=== PATIENT | female | born 2000 | race Caucasian/White ===

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

== ENCOUNTER 2022-05-29 11:21 | Outpatient (REF) | payer OTHER, SELFPAY ==
[2022-05-29 12:12] LABS: Influenza A PCR POSITIVE (Negative); Influenza B PCR NEGATIVE (Negative); Resp Syncy Virus RNA Qual PCR NEGATIVE (Negative); SARS COV2 PCR INHOUSE NEGATIVE (Negative)
== END 2022-05-29 11:22 | disposition home or self-care (01) ==
LOC: HO.LNP 11:21
PROVIDERS: Visit Provider Internal Medicine
DX: Z20.822 Contact with and (suspected) exposure to COVID-19 (principal); R43.9 Unspecified disturbances of smell and taste
CPT/HCPCS: 0241U

== ENCOUNTER 2022-09-10 12:03 | Emergency (ER) | payer OTHER, SELFPAY ==
--- NOTE | ~2022-09-10 | CT_ITS ---
EXAMINATION: CT ABDOMEN AND PELVIS WITHOUT CONTRAST CLINICAL INFORMATION: Flank pain and hematuria. Rule out kidney stone. COMPARISON: None available. TECHNIQUE: Multidetector volumetric imaging was performed from the superior aspect of the liver through the pubic symphysis. Sagittal and coronal reformatted images were obtained on the technologist's workstation. This CT examination was performed using dose optimization techniques as appropriate, variously including the following: *Automated exposure control *Adjustment of mA and/or kV according to patient size (this includes techniques or standardized protocols for targeted exams where dose is matched to indication/reason for exam; i.e. extremities or head) *Use of iterative reconstruction technique DLP: 457 mGy-cm FINDINGS: LUNG BASES: The visualized lung bases are unremarkable. LIVER, GALLBLADDER, AND BILIARY TREE: The liver is normal in size, shape, and attenuation. No focal hepatic lesion or biliary ductal dilatation is present. The gallbladder is unremarkable with no evidence of radiopaque gallstones, gallbladder wall thickening, or obvious pericholecystic inflammatory changes. PANCREAS: Unremarkable. SPLEEN: Unremarkable. ADRENAL GLANDS: Unremarkable. KIDNEYS AND URETERS: The kidneys are normal in size, shape, and attenuation. No hydronephrosis, hydroureter, or calculi seen. No perinephric stranding. BLADDER: Unremarkable. GASTROINTESTINAL TRACT: The small and large bowel are unremarkable. The appendix is unremarkable. ABDOMINAL WALL: No significant hernia is appreciated. LYMPH NODES: Normal. VASCULAR: Unremarkable. PELVIC VISCERA: Unremarkable. OSSEOUS STRUCTURES: Unremarkable. CT/CT abdomen pelvis wo IV con IMPRESSION: Unremarkable exam. Fleischner guidelines were followed.
[2022-09-10 12:36] VITALS: BP 135/74; PULSE 100; RESP 18; TEMP 36.7; O2SAT 99; BMI 25.4
--- NOTE | 2022-09-10 12:41 | ED.GENADULT ---
HPI - General Adult General Chief complaint: General Medical <MARY Gant - Last Filed: 09/10/22 20:45> Stated complaint: quest bladder infection <MARY Gant Last Filed: 09/10/22 20:45> Time Seen by Provider: 09/10/22 15:47 <MARY Gant Last Filed: 09/10/22 20:45> Source: patient <MARY Kwan Last Filed: 09/10/22 17:23> Mode of arrival: ambulatory <MARY Kwan Last Filed: 09/10/22 17:23> Limitations: no limitations <MARY Kwan Last Filed: 09/10/22 17:23> History of Present Illness HPI narrative: Patient is a 22 year old assigned female at with no reported medical history presenting to the emergency department today with right sided CVA. Patient states that she was diagnosed with a UTI and given Bactrim and pyridium. Patient states that she immediately went home and threw up so she came to the ER to be evaluated. Patient denies any dizziness, lightheadedness, abdominal pain, fever, chills, blurry vision, double vision, loss of vision, chest pain, difficulty breathing, shortness of breath, back pain, night sweats, pain with urination, increased urinary frequency, increased urinary urgency, blood in her stool, syncope or a near syncopal episode, recent trauma or falls, bowel incontinence, bladder incontinence, bowel retention, bladder retention, or any other complaints at this time. <MARY Kwan Last Filed: 09/10/22 17:23> Severity: mild <MARY Kwan Last Filed: 09/10/22 17:23> Severity scale (1-10): 2 <MARY Kwan Last Filed: 09/10/22 17:23> Relieving factors: none <MARY Kwan Last Filed: 09/10/22 17:23> Exacerbating factors: none <MARY Kwan Last Filed: 09/10/22 17:23> Associated symptoms: denies other symptoms <MARY Kwan Last Filed: 09/10/22 17:23> Treatments prior to arrival: other (1 dose of ABX) <MARY Kwan Last Filed: 09/10/22 17:23> Related Data Home medications: Previous Rx's Medication Instructions Recorded cephalexin 500 mg capsule 500 mg PO Q6H 7 days #28 caps 09/10/22 phenazopyridine 200 mg tablet 200 mg PO TID 3 days #9 tabs 09/10/22 (Pyridium) <MARY Gnat Last Filed: 09/10/22 20:45> Allergies/adverse reactions: Allergies Allergy/AdvReac Type Severity Reaction Status Date / Time Sulfa (Sulfonamide Allergy Vomiting Verified 09/10/22 16:08 Antibiotics) SEASONAL ALLERGIES Allergy Mild HEADACHE Uncoded 09/10/22 09:48 RUNNY NOSE <MARY Gant Last Filed: 09/10/22 20:45> Review of Systems Constitutional: Constitutional: Reports no additional constitutional complaints, Denies chills, Denies fever(s) and Denies night sweats <MARY Kwan Last Filed: 09/10/22 17:23> Eyes: Eyes: Reports no additional eye complaints, Denies blurry vision, Denies change in vision, Denies diplopia, Denies eye discharge, Denies loss of vision and Denies eye pain <MARY Kwan Last Filed: 09/10/22 17:23> ENT: Denies dizziness <MARY Kwan Last Filed: 09/10/22 17:23> Cardiovascular: Cardiovascular: Reports no additional cardiovascular complaints, Denies chest pain, Denies lightheadedness, Denies Loss of Consciousness and Denies dyspnea <MARY Kwan Last Filed: 09/10/22 17:23> Respiratory: Respiratory: Reports no additional respiratory complaints and Denies dyspnea <MARY Kwan Last Filed: 09/10/22 17:23> Gastrointestinal: Gastrointestinal: Reports no additional gastrointestinal complaints, Denies abdominal pain, Denies melena, Denies hematochezia, Denies change in bowel habits and Denies change in stool character <MARY Kwan Last Filed: 09/10/22 17:23> Genitourinary: Genitourinary: Reports hematuria, Denies urinary frequency, Denies dysuria, Reports flank pain, Denies urinary incontinence, Denies urinary hesitancy and Denies urinary urgency <MARY Kwan - Last Filed: 09/10/22 17:23> Musculoskeletal: Musculoskeletal: Reports no additional musculoskeletal complaints, Denies numbness and Denies tingling <MARY Kwan - Last Filed: 09/10/22 17:23> Neurologic: Denies dizziness, Denies loss of vision, Denies numbness and Denies tingling <MARY Kwan - Last Filed: 09/10/22 17:23> Psychiatric: Psychiatric: Reports no additional psychiatric complaints <MARY Kwan - Last Filed: 09/10/22 17:23> Endocrine: Endocrine: Reports no additional endocrine complaints <MARY Kwan - Last Filed: 09/10/22 17:23> Hematologic/Lymphatic: Hematologic/Lymphatic: Reports no additional hematologic/lymphatic complaints <MARY Kwan - Last Filed: 09/10/22 17:23> Allergic/Immunologic: Allergic/Immunologic: Reports no additional allergic/immunologic complaints <MARY Kwan - Last Filed: 09/10/22 17:23> [facility] [place] Past Medical History Attestation statement: The following information was validated with the patient. <MARY Kwan - Last Filed: 09/10/22 17:23> Source: old records reviewed and nursing notes reviewed <MARY Kwan - Last Filed: 09/10/22 17:23> Social History Social History: Social History Alcohol intake: current Alcohol intake frequency: holidays/special occasions only Patient Tobacco Use Status: Never used Tobacco Advance Directives: No Advance Directives Information Provided: No <MARY Gant - Last Filed: 09/10/22 20:45> Physical Exam ED Vital Signs: Vital Signs - 24 hr 09/10/22 12:36 Temperature 98.0 F Pulse Rate 100 Respiratory Rate 18 Blood Pressure 135/74 Pulse Oximetry 99 Oxygen Delivery Method Room Air BMI result Body Mass Index 25.4 <MARY Gant - Last Filed: 09/10/22 20:45> Vital Signs - 24 hr 09/10/22 12:36 Temperature 98.0 F Pulse Rate 100 Respiratory Rate 18 Blood Pressure 135/74 Pulse Oximetry 99 Oxygen Delivery Method Room Air BMI result Body Mass Index 25.4 <MARY Kwan - Last Filed: 09/10/22 17:23> Const General: cooperative, no acute distress, alert and awake <MARY Kwan - Last Filed: 09/10/22 17:23> Nutritional Appearance: well nourished <MARY Kwan - Last Filed: 09/10/22 17:23> Orientation/consciousness: patient oriented x3 <MARY Kwan - Last Filed: 09/10/22 17:23> Limitations: no limitations <MARY Kwan - Last Filed: 09/10/22 17:23> HENMT Head: Yes normal to inspection and Yes atraumatic <MARY Kwan - Last Filed: 09/10/22 17:23> Ears: hearing grossly normal bilaterally and external ears normal <MARY Kwan - Last Filed: 09/10/22 17:23> General nose exam: Normal external nose present, no nasal discharge noted and no epistaxis <MARY Kwan - Last Filed: 09/10/22 17:23> Face and sinus: Yes normal facial exam, No abrasion and No laceration <MARY Kwan - Last Filed: 09/10/22 17:23> Mouth: Normal oral and palatal mucosa present, no drooling and no muffled voice <MARY Kwan - Last Filed: 09/10/22 17:23> Eyes General: appearance normal, both eyes and all related structures <MARY Kwan - Last Filed: 09/10/22 17:23> Periorbital: periorbital findings normal <MARY Kwan - Last Filed: 09/10/22 17:23> Eyelids: Yes eyelids normal <MARY Kwan - Last Filed: 09/10/22 17:23> Conjunctivae: conjunctivae normal <MARY Kwan - Last Filed: 09/10/22 17:23> Pupils: Equal, round and reactive pupils present <MARY Kwan - Last Filed: 09/10/22 17:23> EOM: EOMs intact bilaterally <MARY Kwan - Last Filed: 09/10/22 17:23> Neck Neck: Yes normal visual inspection, Yes full ROM and Yes no lymphadenopathy <Betty Mir PA - Last Filed: 09/10/22 17:23> Chest Chest palpation & inspection: normal inspection of the chest <Betty Mir PA - Last Filed: 09/10/22 17:23> Resp Effort & Inspection: normal respiratory effort and able to speak in complete sentences <Betty Mir PA - Last Filed: 09/10/22 17:23> Auscultation: clear to auscultation bilaterally <Betty Mir PA - Last Filed: 09/10/22 17:23> Cardio Rate: regular rate <Betty Mir PA - Last Filed: 09/10/22 17:23> Rhythm: regular rhythm <Betty Mir PA - Last Filed: 09/10/22 17:23> GI Inspection: Yes normal to inspection <Betty MirMARY - Last Filed: 09/10/22 17:23> Palpation (GI): Soft to palpation, not firm, nontender and no guarding <Betty Mir PA - Last Filed: 09/10/22 17:23> Neuro General: patient oriented x3 and moves all extremities <Betty Mir PA - Last Filed: 09/10/22 17:23> Cranial nerves: Yes Equal, round and reactive pupils present <Betty Mir PA - Last Filed: 09/10/22 17:23> Cognition (Neuro): normal cognition <Betty Mir PA - Last Filed: 09/10/22 17:23> Motor exam (neuro): 5/5 motor strength present throughout <Betty Mir PA - Last Filed: 09/10/22 17:23> Sensory Exam: Normal double simultaneous stimulation for sensation <Betty Levycorry PA - Last Filed: 09/10/22 17:23> Coordination: [id number] test normal <Betty Mir PA - Last Filed: 09/10/22 17:23> Extrem General: Yes normal to inspection, Yes full ROM and Yes capillary refill normal <Betty Levycorry PA - Last Filed: 09/10/22 17:23> Psych Appearance: grossly normal <MARY Kwan Last Filed: 09/10/22 17:23> Mental Status: mental status grossly normal <MARY Kwan Last Filed: 09/10/22 17:23> Affect: normal affect <MARY Kwan Last Filed: 09/10/22 17:23> Attitude: cooperative <MARY Kwan Last Filed: 09/10/22 17:23> Thought process: Normal thought process present <MARY Kwan Last Filed: 09/10/22 17:23> Thought content: Normal thought content present <MARY Kwan Last Filed: 09/10/22 17:23> Insight: Good insight present (Psych) <MARY Kwan Last Filed: 09/10/22 17:23> Course Course Course Narrative: RME: 22 yold female presents to the ED for hematuria and flank pain. diagnosed with UTI today, but now symptoms worseneined. labs and abdominal CT scan ordered <MARY Gant Last Filed: 09/10/22 20:45> Medical Decision Making Medical Decision Making MDM Narrative: Patient is a 22 year old assigned female at with no reported medical history presenting to the emergency department today with a urinary tract infection. Patient's physical exam was unremarkable. Patient's blood work was unremarkable. Patient's urine showed an acute UTI.Patient's abdomen/pelvis CT showed no acute process. I explained my physical exam findings as well as all test results to the patient. I answered all questions asked by the patient. I stressed the importance of the patient taking her medication as prescribed. I stressed the importance of the patient following up with her primary care provider. I stressed the importance of the patient returning to the emergency department immediately if her symptoms were to worsen or if she were to develop any dizziness, shortness of breath, difficulty breathing, chest pain, blurry vision, loss of vision, nausea, vomiting, abdominal pain, fever, chills, back pain, or any other complaints. Patient verbalized agreement and understanding with this treatment plan and discharge. <MARY Kwan Last Filed: 09/10/22 17:23> Differential Diagnosis Differential Diagnoses: The differential diagnosis associated with the presentation includes <MARY Kwan Last Filed: 09/10/22 17:23> UTI <MARY Kwan - Last Filed: 09/10/22 17:23> Lab Data MDM Lab Attestation statement: I reviewed the patient's lab results. <MARY Kwan - Last Filed: 09/10/22 17:23> Result Diagrams: 09/10/22 12:59 09/10/22 12:59 <MARY Gant - Last Filed: 09/10/22 20:45> Labs: Lab Results 09/10/22 09/10/22 09/10/22 Range/Units 12:59 12:59 12:59 WBC 6.5 (4.8-10.8) X10*3/uL RBC 4.45 (4.20-5.50) X10*6/uL Hgb 13.2 (12.0-16.0) g/dl Hct 40.4 (37.0-47.0) % MCV 90.8 (80.0-98.0) fL MCH 29.7 (27.0-33.0) pg MCHC 32.7 (31.0-35.0) g/dl RDW 12.3 (11.0-16.0) % Plt Count 366 (160-400) X10*3/uL MPV 8.9 L (9.4-12.3) fL Immature Gran % (Auto) 0.2 (0.0-0.4) % Neut % (Auto) 58.1 (45-73) % Lymph % (Auto) 27.6 (20-40) % [place] % (Auto) 10.2 (2-11) % Eos % (Auto) 3.4 (0-4) % Baso % (Auto) 0.5 (0-2) % Lymph # (Auto) 1.8 (1.2-4.9) X10*3/uL [place] # (Auto) 0.7 (0.1-1.2) X10*3/uL Eos # (Auto) 0.2 (0.0-0.4) X10*3/uL Baso # (Auto) 0.0 (0.0-0.2) X10*3/uL Abs Immat Gran (auto) 0.01 (0.00-0.03) X10*3/uL Absolute Neuts (auto) 3.8 (2.0-8.3) x10*3/uL Absolute Nucleated RBC 0.000 (0.0-0.012) X10*3/uL Nucleated RBC % (auto) 0.0 (0.0-0.2) /100WBC Sodium 144 (135-145) mmol/L Potassium 4.3 (3.3-5.1) mmol/L Chloride 110 H (96-108) mmol/L Carbon Dioxide 29 (22-29) mmol/L Anion Gap 9 L (12-20) BUN 6 L (9-16) mg/dL Creatinine 0.74 (0.5-1.4) mg/dL Estim Creat Clear Calc 96.6 Estimated GFR > 60 Random Glucose 102 (60-115) mg/dL Calcium 9.6 (8.4-10.2) mg/dL Total Bilirubin 0.6 (0.0-1.0) mg/dL AST 17 (5-31) U/L ALT 10 (0-31) U/L Alkaline Phosphatase 81 (39-117) U/L Total Protein 7.0 (6.5-8.0) g/dL Albumin 4.4 (3.5-5.0) g/dL Beta HCG, Quant < 2 mIU/mL Urine Color [place] Urine Appearance Clear Urine pH 7.5 (5.0-9.0) Ur Specific [place] 1.010 (1.005-1.025) Urine Protein 30 (1+) H (Neg-Trace) mg/dL Urine Glucose (UA) 100 H (Negative) mg/dL Urine Ketones Negative (Negative) mg/dL Urine Blood Negative (Negative) Urine Nitrite See Note (Negative) Ur Leukocyte Esterase See Note (Negative) Urine RBC 0-2 (0-2) /HPF Urine WBC 0-5 (0-5) /HPF Ur Squamous Epith Cells 6-10 (0-2) /HPF Urine Bacteria Trace (None Seen) Hyaline Casts 0-2 (0-2) /LPF <MARY Gant - Last Filed: 09/10/22 20:45> Lab Results 09/10/22 09/10/22 09/10/22 Range/Units 12:59 12:59 12:59 WBC 6.5 (4.8-10.8) X10*3/uL RBC 4.45 (4.20-5.50) X10*6/uL Hgb 13.2 (12.0-16.0) g/dl Hct 40.4 (37.0-47.0) % MCV 90.8 (80.0-98.0) fL MCH 29.7 (27.0-33.0) pg MCHC 32.7 (31.0-35.0) g/dl RDW 12.3 (11.0-16.0) % Plt Count 366 (160-400) X10*3/uL MPV 8.9 L (9.4-12.3) fL Immature Gran % (Auto) 0.2 (0.0-0.4) % Neut % (Auto) 58.1 (45-73) % Lymph % (Auto) 27.6 (20-40) % [place] % (Auto) 10.2 (2-11) % Eos % (Auto) 3.4 (0-4) % Baso % (Auto) 0.5 (0-2) % Lymph # (Auto) 1.8 (1.2-4.9) X10*3/uL [place] # (Auto) 0.7 (0.1-1.2) X10*3/uL Eos # (Auto) 0.2 (0.0-0.4) X10*3/uL Baso # (Auto) 0.0 (0.0-0.2) X10*3/uL Abs Immat Gran (auto) 0.01 (0.00-0.03) X10*3/uL Absolute Neuts (auto) 3.8 (2.0-8.3) x10*3/uL Absolute Nucleated RBC 0.000 (0.0-0.012) X10*3/uL Nucleated RBC % (auto) 0.0 (0.0-0.2) /100WBC Sodium 144 (135-145) mmol/L Potassium 4.3 (3.3-5.1) mmol/L Chloride 110 H (96-108) mmol/L Carbon Dioxide 29 (22-29) mmol/L Anion Gap 9 L (12-20) BUN 6 L (9-16) mg/dL Creatinine 0.74 (0.5-1.4) mg/dL Estim Creat Clear Calc 96.6 Estimated GFR > 60 Random Glucose 102 (60-115) mg/dL Calcium 9.6 (8.4-10.2) mg/dL Total Bilirubin 0.6 (0.0-1.0) mg/dL AST 17 (5-31) U/L ALT 10 (0-31) U/L Alkaline Phosphatase 81 (39-117) U/L Total Protein 7.0 (6.5-8.0) g/dL Albumin 4.4 (3.5-5.0) g/dL Beta HCG, Quant < 2 mIU/mL Urine Color [place] Urine Appearance Clear Urine pH 7.5 (5.0-9.0) Ur Specific [place] 1.010 (1.005-1.025) Urine Protein 30 (1+) H (Neg-Trace) mg/dL Urine Glucose (UA) 100 H (Negative) mg/dL Urine Ketones Negative (Negative) mg/dL Urine Blood Negative (Negative) Urine Nitrite See Note (Negative) Ur Leukocyte Esterase See Note (Negative) Urine RBC 0-2 (0-2) /HPF Urine WBC 0-5 (0-5) /HPF Ur Squamous Epith Cells 6-10 (0-2) /HPF Urine Bacteria Trace (None Seen) Hyaline Casts 0-2 (0-2) /LPF <MARY Kwan - Last Filed: 09/10/22 17:23> Independent Interpretation I performed an independent interpretation of an: CT Scan <MARY Kwan - Last Filed: 09/10/22 17:23> Interpretation: My interpretation is in agreement with the radiologist's impression of this imaging study. EXAMINATION: CT ABDOMEN AND PELVIS WITHOUT CONTRAST? CLINICAL INFORMATION: Flank pain and hematuria. Rule out kidney stone.? COMPARISON: None available.? TECHNIQUE: Multidetector volumetric imaging was performed from the superior aspect of the liver through the pubic symphysis. Sagittal and coronal reformatted images were obtained on the technologist's workstation.? This CT examination was performed using dose optimization techniques as appropriate, variously including the following: *Automated exposure control *Adjustment of mA and/or kV according to patient size (this includes techniques or standardized protocols for targeted exams where dose is matched to indication/reason for exam; i.e. extremities or head) *Use of iterative reconstruction technique DLP: 457 mGy-cm FINDINGS: LUNG BASES: The visualized lung bases are unremarkable.? LIVER, GALLBLADDER, AND BILIARY TREE: The liver is normal in size, shape, and attenuation. No focal hepatic lesion or biliary ductal dilatation is present. The gallbladder is unremarkable with no evidence of radiopaque gallstones, gallbladder wall thickening, or obvious pericholecystic inflammatory changes.? PANCREAS: Unremarkable.? SPLEEN: Unremarkable.? ADRENAL GLANDS: Unremarkable.? KIDNEYS AND URETERS: The kidneys are normal in size, shape, and attenuation. No hydronephrosis, hydroureter, or calculi seen. No perinephric stranding. ? BLADDER: Unremarkable.? GASTROINTESTINAL TRACT: The small and large bowel are unremarkable. The appendix is unremarkable.? ABDOMINAL WALL: No significant hernia is appreciated.? LYMPH NODES: Normal. VASCULAR: Unremarkable. PELVIC VISCERA: Unremarkable.? OSSEOUS STRUCTURES: Unremarkable.? CT/CT abdomen pelvis wo IV con IMPRESSION: Unremarkable exam. ? Fleischner guidelines were followed. Dictated By: Birdie Williamson MD Signed By: Electronically signed by Birdie Williamson MD 09/10/22 [id number] <MARY Kwan - Last Filed: 09/10/22 17:23> Discharge Plan Discharge Clinical Impression: Urinary tract infection <MARY Gant - Last Filed: 09/10/22 20:45> Patient Disposition: Home, Self-Care <MARY Gant - Last Filed: 09/10/22 20:45> Instructions: Urinary Tract Infection in Women (DC) <MARY Gant - Last Filed: 09/10/22 20:45> Additional Instructions: Follow up with your primary care provider. Return to the emergency department immediately if your symptoms worsen or if you develop any dizziness, shortness of breath, difficulty breathing, chest pain, blurry vision, loss of vision, nausea, vomiting, abdominal pain, fever, chills, back pain, or any other complaints. <MARY Gant - Last Filed: 09/10/22 20:45> Prescriptions: New cephalexin 500 mg capsule 500 mg PO Q6H 7 Days Qty: 28 0RF Discontinued sulfamethoxazole-trimethoprim [Bactrim DS] 800-160 mg tablet 1 tab PO BID 5 Days Qty: 10 0RF No Action phenazopyridine [Pyridium] 200 mg tablet 200 mg PO TID 3 Days Qty: 9 0RF <MARY Gant - Last Filed: 09/10/22 20:45> Referrals: [facility] [place] [Provider Group] (Call to establish and follow up with a primary care provider. If you already have a primary care provider, please follow up with them.) [facility] [place] [place] Primary Care, Kelly [Provider Group] (Call to establish and follow up with a primary care provider. If you already have a primary care provider, please follow up with them.) [facility] [place] Primary Care,Alex [Provider Group] (Call to establish and follow up with a primary care provider. If you already have a primary care provider, please follow up with them.) <MARY Gant - Last Filed: 09/10/22 20:45> Stand Alone Forms: Work/School Release <MARY Gant - Last Filed: 09/10/22 20:45> Interventions: ED Discharge Assessment Last Done: 09/10/22 16:09 <MARY Gant - Last Filed: 09/10/22 20:45> Discharge Date/Time: 09/10/22 16:10 <MARY Gant - Last Filed: 09/10/22 20:45> Print Language: Malay <MARY Gant - Last Filed: 09/10/22 20:45>
[2022-09-10 13:04] LABS: MANUAL DIFF FLAG NO
[2022-09-10 13:07] LABS: Appearance Urine Clear; Basophils Percent Auto 0.5 % (0-2); Color Urine Orange; Eosinophils Absolute Auto 0.2 X10*3/uL (0.0-0.4); Eosinophils Percent Auto 3.4 % (0-4); Glucose Urine UA 100 mg/dL (Negative); Hematocrit 40.4 % (37.0-47.0); Hemoglobin 13.2 g/dl (12.0-16.0); Imm Gran Abs Auto 0.01 X10*3/uL (0.00-0.03); Imm Gran Pct Auto 0.2 % (0.0-0.4); Lymphocytes Absolute Auto 1.8 X10*3/uL (1.2-4.9); Lymphocytes Percent Auto 27.6 % (20-40); Mean Corpuscular HGB Conc 32.7 g/dl (31.0-35.0); Mean Corpuscular Hemoglobin 29.7 pg (27.0-33.0); Mean Corpuscular Volume 90.8 fL (80.0-98.0); Mean Platelet Volume 8.9 fL (9.4-12.3); Monocytes Absolute Auto 0.7 X10*3/uL (0.1-1.2); Monocytes Percent Auto 10.2 % (2-11); Neutrophils Absolute Auto 3.8 x10*3/uL (2.0-8.3); Neutrophils Percent Auto 58.1 % (45-73); PH 7.5 (5.0-9.0); Platelet Count 366 X10*3/uL (160-400); Red Blood Count 4.45 X10*6/uL (4.20-5.50); Red Cell Distribution Width 12.3 % (11.0-16.0); UMIC TRIGGER UACC YES; Urine Blood Negative (Negative); Urine Ketones Negative (Negative); Urine Protein 30 (1+) mg/dL (Neg-Trace); White Blood Count 6.5 X10*3/uL (4.8-10.8)
[2022-09-10 13:21] LABS: Bacteria Urine Trace (None Seen); RBC Urine 0-2 /HPF (0-2); WBC Urine 0-5 /HPF (0-5)
[2022-09-10 13:22] LABS: Hyaline Casts Urine 0-2 /LPF (0-2)
[2022-09-10 13:24] LABS: Alanine Aminotransferase 10 U/L (0-31); Albumin Level 4.4 g/dL (3.5-5.0); Alkaline Phosphatase 81 U/L (39-117); Anion Gap 9 (12-20); Aspartate Amino Transferase 17 U/L (5-31); Bilirubin Total 0.6 mg/dL (0.0-1.0); Blood Urea Nitrogen 6 mg/dL (9-16); Calcium 9.6 mg/dL (8.4-10.2); Carbon Dioxide 29 mmol/L (22-29); Chloride 110 mmol/L (96-108); Creatinine Clr Calc Pharmacy 96.6; Estimated Glomerular Filt Rate > 60; Glucose Random 102 mg/dL (60-115); Potassium 4.3 mmol/L (3.3-5.1); Sodium 144 mmol/L (135-145)
[2022-09-10 13:31] LABS: HCG Quantitative < 2 mIU/mL
== END 2022-09-10 16:10 | disposition home or self-care (01) ==
PROVIDERS: Physician Assistant; Emergency Provider Emergency Medicine
DX: N39.0 Urinary tract infection, site not specified (principal); R10.2 Pelvic and perineal pain; Z79.899 Other long term (current) drug therapy
CPT/HCPCS: 36415; 74176; 80053; 81001; 84702; 85025; 99282; 99284

== ENCOUNTER 2022-09-13 12:26 | Emergency (ER) | payer OTHER, SELFPAY ==
--- NOTE | ~2022-09-13 | US_ITS ---
EXAMINATION: US RETROPERITONEAL LIMITED (RENAL ONLY) Compression ultrasound of the appendix. CLINICAL INFORMATION: Hematuria with right flank pain. Right lower quadrant tenderness. COMPARISON: CT scan of September 10, 2022 TECHNIQUE: Bilateral renal ultrasound. Compression ultrasound of the appendix. FINDINGS: RIGHT KIDNEY: 10.5 x 4.8 x 4.5 cm (SAG x AP x TRV). The kidney is normal in size, contour, and echogenicity. Renal cortical thickness is normal. No calculi or focal parenchymal lesions. No hydronephrosis. LEFT KIDNEY: 10.0 x 5.8 x 4.7 cm (SAG x AP x TRV). The kidney is normal in size, contour, and echogenicity. Renal cortical thickness is normal. No calculi or focal parenchymal lesions. No hydronephrosis. Compression ultrasound of the right lower quadrant was performed. There is peristalsing bowel present without free fluid or lymphadenopathy. The right ovary appeared unremarkable. Appendix was not identified. No blind ending noncompressible structure was identified. US/US renal BI IMPRESSION: Normal renal ultrasound study without evidence of hydronephrosis. No evidence of acute appendicitis with appendix not being visualized..
--- NOTE | ~2022-09-13 | US_ITS ---
EXAMINATION: US RETROPERITONEAL LIMITED (RENAL ONLY) Compression ultrasound of the appendix. CLINICAL INFORMATION: Hematuria with right flank pain. Right lower quadrant tenderness. COMPARISON: CT scan of September 10, 2022 TECHNIQUE: Bilateral renal ultrasound. Compression ultrasound of the appendix. FINDINGS: RIGHT KIDNEY: 10.5 x 4.8 x 4.5 cm (SAG x AP x TRV). The kidney is normal in size, contour, and echogenicity. Renal cortical thickness is normal. No calculi or focal parenchymal lesions. No hydronephrosis. LEFT KIDNEY: 10.0 x 5.8 x 4.7 cm (SAG x AP x TRV). The kidney is normal in size, contour, and echogenicity. Renal cortical thickness is normal. No calculi or focal parenchymal lesions. No hydronephrosis. Compression ultrasound of the right lower quadrant was performed. There is peristalsing bowel present without free fluid or lymphadenopathy. The right ovary appeared unremarkable. Appendix was not identified. No blind ending noncompressible structure was identified. US/US appendix IMPRESSION: Normal renal ultrasound study without evidence of hydronephrosis. No evidence of acute appendicitis with appendix not being visualized..
[2022-09-13 12:33] VITALS: BP 121/72; PULSE 110; RESP 18; TEMP 36.9; O2SAT 97; BMI 25.4
--- NOTE | 2022-09-13 12:33 | ED_ITS ---
HPI - Female Genitourinary General Chief complaint: Urogenital-Female <Mireya Villalobos NP - Last Filed: 09/13/22 12:40> Stated complaint: UTI? <Mireya Villalobos NP - Last Filed: 09/13/22 12:40> Time Seen by Provider: 09/13/22 12:52 <Mireya Villalobos NP - Last Filed: 09/13/22 12:40> Source: patient and old records reviewed <MARY Cardenas - Last Filed: 09/13/22 16:54> Mode of arrival: ambulatory <MARY Cardenas Last Filed: 09/13/22 16:54> Limitations: no limitations <MARY Cardenas Last Filed: 09/13/22 16:54> History of Present Illness HPI Narrative: 22-year-old female with recently diagnosed UTI who presents to the ER for evaluation of worsening back pain, right lower abdominal pain and vomiting since yesterday. She was seen here 3 days ago for right-sided CVA tenderness, urinary symptoms. She was discharged on Keflex and pyridium from Urgent Care which she has been taking. She reports improvement in her urinary symptoms however her low back pain has gotten worse. She reports vomiting this morning after drinking coffee. She has pain in her right lower abdomen. LMP 2 weeks ago. She denies chance of or STI. No vaginal discharge or bleeding. She denies fever or chills. No diarrhea. CT scan here 3 days ago didn ot show any abnormalities of the appendix, no renal stones. Her UA was negative for infection during that time but she was discharged with abx given her symptoms. <MARY Cardenas - Last Filed: 09/13/22 16:54> MD elicited complaint: pelvic pain, back pain and flank pain <MARY Cardenas Last Filed: 09/13/22 16:54> Onset (ago): day(s) (4) <MARY Cardenas Last Filed: 09/13/22 16:54> Location of symptoms: RLQ and low back <MARY Cardenas Last Filed: 09/13/22 16:54> Severity: moderate <MARY Cardenas Last Filed: 09/13/22 16:54> Quality of pain: sharp and aching <MARY Cardenas - Last Filed: 09/13/22 16:54> Consistency: constant <MARY Cardenas - Last Filed: 09/13/22 16:54> Vaginal discharge: none <MARY Cardenas - Last Filed: 09/13/22 16:54> Vaginal bleeding: none <MARY Cardenas - Last Filed: 09/13/22 16:54> Urinary symptoms: Hematuria (Patient reports orange colored urine and yesterday turned pink) <MARY Cardenas - Last Filed: 09/13/22 16:54> Exacerbating factors: none <MARY Cardenas - Last Filed: 09/13/22 16:54> Relieving factors: none <MARY Cardenas - Last Filed: 09/13/22 16:54> Associated symptoms: abdominal pain, loss of appetite, nausea and vomiting <MARY Cardenas - Last Filed: 09/13/22 16:54> Treatment prior to arrival: none <MARY Cardenas - Last Filed: 09/13/22 16:54> Sexual activity: Yes (2 weeks ago, no new sexual partners, no known STI exposures) <MARY Cardenas - Last Filed: 09/13/22 16:54> Patient : No <MARY Cardenas - Last Filed: 09/13/22 16:54> Date of Last Menstrual Period: 08/30/22 <MARY Cardenas - Last Filed: 09/13/22 16:54> Related Data Home medications: Previous Rx's Medication Instructions Recorded cephalexin 500 mg capsule 500 mg PO Q6H 7 days #28 caps 09/10/22 phenazopyridine 200 mg tablet 200 mg PO TID 3 days #9 tabs 09/10/22 (Pyridium) naproxen 500 mg tablet 500 mg PO BID PRN pain #20 tabs 09/13/22 ondansetron 4 mg disintegrating 4 mg PO Q8H PRN nausea and 09/13/22 tablet vomiting #10 tabs <Mireya Villalobos NP - Last Filed: 09/13/22 12:40> Allergies/Adverse reactions: Allergies Allergy/AdvReac Type Severity Reaction Status Date / Time Sulfa (Sulfonamide Allergy Vomiting Verified 09/13/22 12:33 Antibiotics) SEASONAL ALLERGIES Allergy Mild HEADACHE Uncoded 09/10/22 09:48 RUNNY NOSE <Mireya Villalobos NP - Last Filed: 09/13/22 12:40> Review of Systems Review of Systems: Yes all other systems are reviewed and are negative <MARY Cardenas - Last Filed: 09/13/22 16:54> [facility] Past Medical History Date of Last Menstrual Period: 08/30/22 <MARY Cardenas - Last Filed: 09/13/22 16:54> Social History Social History: Social History Alcohol intake: current Alcohol intake frequency: holidays/special occasions only Patient Tobacco Use Status: Never used Tobacco Advance Directives: No Patient : No <Mireya Villalobos NP - Last Filed: 09/13/22 12:40> Physical Exam Vital Signs: Vital Signs: Last Vital Signs Temp 98.4 F 09/13/22 14:50 Pulse 77 09/13/22 14:50 Resp 16 09/13/22 14:50 BP 103/58 L 09/13/22 14:50 Pulse Ox 98 09/13/22 14:50 O2 Del Method Room Air 09/13/22 14:50 BMI result Body Mass Index 25.4 <Mireya Villalobos NP - Last Filed: 09/13/22 12:40> Vital Signs: Last Vital Signs Temp 98.4 F 09/13/22 14:50 Pulse 77 09/13/22 14:50 Resp 16 09/13/22 14:50 BP 103/58 L 09/13/22 14:50 Pulse Ox 98 09/13/22 14:50 O2 Del Method Room Air 09/13/22 14:50 BMI result Body Mass Index 25.4 <MARY Cardenas - Last Filed: 09/13/22 16:54> Appearance: Alert. Oriented X3. No acute distress. Head: normocephalic, atraumatic. Eyes: Pupils equal, round and reactive to light. ENT: Pharynx normal. No tonsillar swelling or exudate. Neck: Normal inspection. Neck supple. CVS: Normal heart rate and rhythm. Pulses normal. Respiratory: No respiratory distress. Breath sounds normal. Abdomen: Soft with RLQ tenderness with guarding, no rebound. normal active +BS x4. pelvic deferred. Back: lumbar tenderness bilaterally. No CVA tenderness. Skin: Skin warm and dry. Normal skin color. Normal skin turgor. No rashes. Extremities: No lower extremity edema. No joint swelling. Neuro/psych: Oriented X 3. No motor deficit. No sensory deficit. CN II-XII intact. Normal speech and cognition. <MARY Cardenas - Last Filed: 09/13/22 16:54> Course Course Course Narrative: This is rapid medical exam. Deferred additional HPI, ROS, PE to primary provider. 22 yo female here with continued back pain/abdominal pain, vomiting x 1, seen here 3 days ago and diagnosed with UTI (started on cephalexin) which she has been taking. Urinary symptoms are improved. No fevers, chills, diarrhea, constipation. LMP 2 weeks ago Last sexually active 2 weeks ago (reports she has been tested twice and negative for STI-does not feel she needs repeat testing). Will obtain labs, UA, ur preg. VSS <Mireya Villalobos NP - Last Filed: 09/13/22 12:40> Reevaluation(s) Reevaluation #1: pain improved. labs and U/S unremarkable. doubt appendicitis without inflammatory changes on U/S and no leukocytosis. Will plan to d/c with NSAIDs and Zofran. Return precautions discussed. stable for d/c and all questions answered. patient agrees w plan <MARY Cardenas - Last Filed: 09/13/22 16:54> Time: 16:28 <MARY Cardenas - Last Filed: 09/13/22 16:54> Medications Administered Discontinued Medications Generic Name Dose Route Start Last Admin Trade Name Freq PRN Reason Stop Dose Admin Sodium Chloride 1,000 mls @ 999 mls/hr 09/13/22 13:45 09/13/22 14:59 Ns IVCONT 09/13/22 14:45 Infused .Q1H1M BEATRIZ Infusion Ketorolac Tromethamine 30 mg 09/13/22 13:43 09/13/22 14:10 Ketorolac Tromethamine 30 Mg/Ml Vial IVPUSH 09/13/22 13:44 30 mg ONCE ONE Administration Ondansetron HCl 4 mg 09/13/22 13:43 09/13/22 14:10 Ondansetron Hcl 4 Mg/2 Ml Vial IVPUSH 09/13/22 13:44 4 mg ONCE ONE Administration <Mireya Villalobos NP - Last Filed: 09/13/22 12:40> Medications Administered Discontinued Medications Generic Name Dose Route Start Last Admin Trade Name Freq PRN Reason Stop Dose Admin Sodium Chloride 1,000 mls @ 999 mls/hr 09/13/22 13:45 09/13/22 14:59 Ns IVCONT 09/13/22 14:45 Infused .Q1H1M BEATRIZ Infusion Ketorolac Tromethamine 30 mg 09/13/22 13:43 09/13/22 14:10 Ketorolac Tromethamine 30 Mg/Ml Vial IVPUSH 09/13/22 13:44 30 mg ONCE ONE Administration Ondansetron HCl 4 mg 09/13/22 13:43 09/13/22 14:10 Ondansetron Hcl 4 Mg/2 Ml Vial IVPUSH 09/13/22 13:44 4 mg ONCE ONE Administration <MARY Cardenas - Last Filed: 09/13/22 16:54> Medical Decision Making Medical Decision Making MDM Narrative: 22 yo female with recent UTI presenting back to the ER with lower back pain, lower abdominal pain (worse on the right) and vomiting x1. No longer having UTI symptoms but urine is pink/orange. She is on pyridium which is likely the cause. UA with no blood or infection today. She has some protein in her urine which was present the other day. Normal kidney function on labs, no swelling or edema on exam to suggest nephrotic or nephritic syndrome. There were no stones in her kidneys on CT 3 days ago. No ovarian cysts at that time either. Her appendix was normal. Given her age, appendix U/S was done today which did not visulize appendix but no inflammatory changes. No leukocytosis. pain improved w/ toradol. Less likely appendicitis. Could possibly be yuliyatedarnell. at this point she remains stable, she is feeling better and is comfortable w/ d/c home. will d/c with nsaid and zofran. encouraged to f/u with PCP or come back if new/worsening symptoms. <MARY Cardenas - Last Filed: 09/13/22 16:54> Differential Diagnosis Differential Diagnoses: The differential diagnosis associated with the presentation includes <MARY Cardenas - Last Filed: 09/13/22 16:54> appendicitis, kidney stone, pyelonpehritis, ovarian cyst, ovarian torsion, gastroenteritis, mittelschmerz <MARY Cardenas - Last Filed: 09/13/22 16:54> Admission/Observation Consideration of admission/observation: Escalation of care including admission/observation considered <MARY Cardenas - Last Filed: 09/13/22 16:54> Lab Data MDM Lab Attestation statement: I reviewed the patient's lab results. <MARY Cardenas - Last Filed: 09/13/22 16:54> Result Diagrams: 09/13/22 12:58 09/13/22 12:58 <Mireya Villalobos NP - Last Filed: 09/13/22 12:40> Labs: Lab Results 09/13/22 09/13/22 09/13/22 Range/Units 12:58 12:58 12:58 WBC 5.5 (4.8-10.8) X10*3/uL RBC 4.46 (4.20-5.50) X10*6/uL Hgb 13.5 (12.0-16.0) g/dl Hct 40.5 (37.0-47.0) % MCV 90.8 (80.0-98.0) fL MCH 30.3 (27.0-33.0) pg MCHC 33.3 (31.0-35.0) g/dl RDW 12.0 (11.0-16.0) % Plt Count 366 (160-400) X10*3/uL MPV 9.2 L (9.4-12.3) fL Immature Gran % (Auto) 0.2 (0.0-0.4) % Neut % (Auto) 68.7 (45-73) % Lymph % (Auto) 24.3 (20-40) % [place] % (Auto) 4.9 (2-11) % Eos % (Auto) 1.5 (0-4) % Baso % (Auto) 0.4 (0-2) % Lymph # (Auto) 1.3 (1.2-4.9) X10*3/uL [place] # (Auto) 0.3 (0.1-1.2) X10*3/uL Eos # (Auto) 0.1 (0.0-0.4) X10*3/uL Baso # (Auto) 0.0 (0.0-0.2) X10*3/uL Abs Immat Gran (auto) 0.01 (0.00-0.03) X10*3/uL Absolute Neuts (auto) 3.8 (2.0-8.3) x10*3/uL Absolute Nucleated RBC 0.000 (0.0-0.012) X10*3/uL Nucleated RBC % (auto) 0.0 (0.0-0.2) /100WBC Sodium 139 (135-145) mmol/L Potassium 4.1 (3.3-5.1) mmol/L Chloride 106 (96-108) mmol/L Carbon Dioxide 24 (22-29) mmol/L Anion Gap 13 (12-20) BUN 9 (9-16) mg/dL Creatinine 0.73 (0.5-1.4) mg/dL Estim Creat Clear Calc 97.9 Estimated GFR > 60 Random Glucose 122 H (60-115) mg/dL Calcium 9.8 (8.4-10.2) mg/dL Total Bilirubin 0.9 (0.0-1.0) mg/dL Direct Bilirubin 0.2 (0.0-0.5) mg/dL AST 14 (5-31) U/L ALT 8 (0-31) U/L Alkaline Phosphatase 80 (39-117) U/L Total Protein 6.9 (6.5-8.0) g/dL Albumin 4.4 (3.5-5.0) g/dL Urine Color Urine Appearance Urine pH (5.0-9.0) Ur Specific [place] (1.005-1.025) Urine Protein (Neg-Trace) mg/dL Urine Glucose (UA) (Negative) mg/dL Urine Ketones (Negative) mg/dL Urine Blood (Negative) Urine Nitrite (Negative) Ur Leukocyte Esterase (Negative) Urine RBC (0-2) /HPF Urine WBC (0-5) /HPF Ur Squamous Epith Cells (0-2) /HPF Urine Bacteria (None Seen) Hyaline Casts (0-2) /LPF Urine Test (NEGATIVE) COVID-19 (ABIODUN) Negative (Negative) COVID-19 Clin Com See Note 09/13/22 09/13/22 Range/Units 12:58 12:58 WBC (4.8-10.8) X10*3/uL RBC (4.20-5.50) X10*6/uL Hgb (12.0-16.0) g/dl Hct (37.0-47.0) % MCV (80.0-98.0) fL MCH (27.0-33.0) pg MCHC (31.0-35.0) g/dl RDW (11.0-16.0) % Plt Count (160-400) X10*3/uL MPV (9.4-12.3) fL Immature Gran % (Auto) (0.0-0.4) % Neut % (Auto) (45-73) % Lymph % (Auto) (20-40) % [place] % (Auto) (2-11) % Eos % (Auto) (0-4) % Baso % (Auto) (0-2) % Lymph # (Auto) (1.2-4.9) X10*3/uL [place] # (Auto) (0.1-1.2) X10*3/uL Eos # (Auto) (0.0-0.4) X10*3/uL Baso # (Auto) (0.0-0.2) X10*3/uL Abs Immat Gran (auto) (0.00-0.03) X10*3/uL Absolute Neuts (auto) (2.0-8.3) x10*3/uL Absolute Nucleated RBC (0.0-0.012) X10*3/uL Nucleated RBC % (auto) (0.0-0.2) /100WBC Sodium (135-145) mmol/L Potassium (3.3-5.1) mmol/L Chloride (96-108) mmol/L Carbon Dioxide (22-29) mmol/L Anion Gap (12-20) BUN (9-16) mg/dL Creatinine (0.5-1.4) mg/dL Estim Creat Clear Calc Estimated GFR Random Glucose (60-115) mg/dL Calcium (8.4-10.2) mg/dL Total Bilirubin (0.0-1.0) mg/dL Direct Bilirubin (0.0-0.5) mg/dL AST (5-31) U/L ALT (0-31) U/L Alkaline Phosphatase (39-117) U/L Total Protein (6.5-8.0) g/dL Albumin (3.5-5.0) g/dL Urine Color [place] Urine Appearance Clear Urine pH 5.5 (5.0-9.0) Ur Specific [place] 1.010 (1.005-1.025) Urine Protein 100 (2+) H (Neg-Trace) mg/dL Urine Glucose (UA) 250 H (Negative) mg/dL Urine Ketones Trace (Negative) mg/dL Urine Blood Negative (Negative) Urine Nitrite See Note (Negative) Ur Leukocyte Esterase See Note (Negative) Urine RBC 0-2 (0-2) /HPF Urine WBC 0-5 (0-5) /HPF Ur Squamous Epith Cells 3-5 (0-2) /HPF Urine Bacteria Trace (None Seen) Hyaline Casts 0-2 (0-2) /LPF Urine Test NEGATIVE (NEGATIVE) COVID-19 (ABIODUN) (Negative) COVID-19 Clin Com <Mireya Villalobos, [employer] - Last Filed: 09/13/22 12:40> Lab Results 09/13/22 09/13/22 09/13/22 Range/Units 12:58 12:58 12:58 WBC 5.5 (4.8-10.8) X10*3/uL RBC 4.46 (4.20-5.50) X10*6/uL Hgb 13.5 (12.0-16.0) g/dl Hct 40.5 (37.0-47.0) % MCV 90.8 (80.0-98.0) fL MCH 30.3 (27.0-33.0) pg MCHC 33.3 (31.0-35.0) g/dl RDW 12.0 (11.0-16.0) % Plt Count 366 (160-400) X10*3/uL MPV 9.2 L (9.4-12.3) fL Immature Gran % (Auto) 0.2 (0.0-0.4) % Neut % (Auto) 68.7 (45-73) % Lymph % (Auto) 24.3 (20-40) % [place] % (Auto) 4.9 (2-11) % Eos % (Auto) 1.5 (0-4) % Baso % (Auto) 0.4 (0-2) % Lymph # (Auto) 1.3 (1.2-4.9) X10*3/uL [place] # (Auto) 0.3 (0.1-1.2) X10*3/uL Eos # (Auto) 0.1 (0.0-0.4) X10*3/uL Baso # (Auto) 0.0 (0.0-0.2) X10*3/uL Abs Immat Gran (auto) 0.01 (0.00-0.03) X10*3/uL Absolute Neuts (auto) 3.8 (2.0-8.3) x10*3/uL Absolute Nucleated RBC 0.000 (0.0-0.012) X10*3/uL Nucleated RBC % (auto) 0.0 (0.0-0.2) /100WBC Sodium 139 (135-145) mmol/L Potassium 4.1 (3.3-5.1) mmol/L Chloride 106 (96-108) mmol/L Carbon Dioxide 24 (22-29) mmol/L Anion Gap 13 (12-20) BUN 9 (9-16) mg/dL Creatinine 0.73 (0.5-1.4) mg/dL Estim Creat Clear Calc 97.9 Estimated GFR > 60 Random Glucose 122 H (60-115) mg/dL Calcium 9.8 (8.4-10.2) mg/dL Total Bilirubin 0.9 (0.0-1.0) mg/dL Direct Bilirubin 0.2 (0.0-0.5) mg/dL AST 14 (5-31) U/L ALT 8 (0-31) U/L Alkaline Phosphatase 80 (39-117) U/L Total Protein 6.9 (6.5-8.0) g/dL Albumin 4.4 (3.5-5.0) g/dL Urine Color Urine Appearance Urine pH (5.0-9.0) Ur Specific [place] (1.005-1.025) Urine Protein (Neg-Trace) mg/dL Urine Glucose (UA) (Negative) mg/dL Urine Ketones (Negative) mg/dL Urine Blood (Negative) Urine Nitrite (Negative) Ur Leukocyte Esterase (Negative) Urine RBC (0-2) /HPF Urine WBC (0-5) /HPF Ur Squamous Epith Cells (0-2) /HPF Urine Bacteria (None Seen) Hyaline Casts (0-2) /LPF Urine Test (NEGATIVE) COVID-19 (ABIODUN) Negative (Negative) COVID-19 Clin Com See Note 09/13/22 09/13/22 Range/Units 12:58 12:58 WBC (4.8-10.8) X10*3/uL RBC (4.20-5.50) X10*6/uL Hgb (12.0-16.0) g/dl Hct (37.0-47.0) % MCV (80.0-98.0) fL MCH (27.0-33.0) pg MCHC (31.0-35.0) g/dl RDW (11.0-16.0) % Plt Count (160-400) X10*3/uL MPV (9.4-12.3) fL Immature Gran % (Auto) (0.0-0.4) % Neut % (Auto) (45-73) % Lymph % (Auto) (20-40) % [place] % (Auto) (2-11) % Eos % (Auto) (0-4) % Baso % (Auto) (0-2) % Lymph # (Auto) (1.2-4.9) X10*3/uL [place] # (Auto) (0.1-1.2) X10*3/uL Eos # (Auto) (0.0-0.4) X10*3/uL Baso # (Auto) (0.0-0.2) X10*3/uL Abs Immat Gran (auto) (0.00-0.03) X10*3/uL Absolute Neuts (auto) (2.0-8.3) x10*3/uL Absolute Nucleated RBC (0.0-0.012) X10*3/uL Nucleated RBC % (auto) (0.0-0.2) /100WBC Sodium (135-145) mmol/L Potassium (3.3-5.1) mmol/L Chloride (96-108) mmol/L Carbon Dioxide (22-29) mmol/L Anion Gap (12-20) BUN (9-16) mg/dL Creatinine (0.5-1.4) mg/dL Estim Creat Clear Calc Estimated GFR Random Glucose (60-115) mg/dL Calcium (8.4-10.2) mg/dL Total Bilirubin (0.0-1.0) mg/dL Direct Bilirubin (0.0-0.5) mg/dL AST (5-31) U/L ALT (0-31) U/L Alkaline Phosphatase (39-117) U/L Total Protein (6.5-8.0) g/dL Albumin (3.5-5.0) g/dL Urine Color [place] Urine Appearance Clear Urine pH 5.5 (5.0-9.0) Ur Specific [place] 1.010 (1.005-1.025) Urine Protein 100 (2+) H (Neg-Trace) mg/dL Urine Glucose (UA) 250 H (Negative) mg/dL Urine Ketones Trace (Negative) mg/dL Urine Blood Negative (Negative) Urine Nitrite See Note (Negative) Ur Leukocyte Esterase See Note (Negative) Urine RBC 0-2 (0-2) /HPF Urine WBC 0-5 (0-5) /HPF Ur Squamous Epith Cells 3-5 (0-2) /HPF Urine Bacteria Trace (None Seen) Hyaline Casts 0-2 (0-2) /LPF Urine Test NEGATIVE (NEGATIVE) COVID-19 (ABIODUN) (Negative) COVID-19 Clin Com <MARY Cardenas - Last Filed: 09/13/22 16:54> Independent Interpretation I performed an independent interpretation of an: Ultrasound <MARY Cardenas - Last Filed: 09/13/22 16:54> Interpretation: no hydro, no visualized appendicitis <MARY Cardenas - Last Filed: 09/13/22 16:54> Radiology Impression Discussion of test interpretation with radiology: I have reviewed the radiologist's reading. <MARY Cardenas - Last Filed: 09/13/22 16:54> Radiologist Impression: US/US renal BI IMPRESSION: Normal renal ultrasound study without evidence of hydronephrosis. ? No evidence of acute appendicitis with appendix not being visualized.. <MARY Cardenas - Last Filed: 09/13/22 16:54> Independent Historian Clinical information obtained from an independent historian. History obtained from or confirmed by: Parent <MARY Cardenas - Last Filed: 09/13/22 16:54> External Record Review External record reviewed: Office record, Prior outpatient labs and Prior outpatient radiology <MARY Cardenas - Last Filed: 09/13/22 16:54> Tests considered The following testing was considered but not selected: repeat CT scan considered <MARY Cardenas Last Filed: 09/13/22 16:54> Prescription Management I considered prescription management with: Pain Medication and Antibiotic <MARY Cardenas Last Filed: 09/13/22 16:54> Critical Care Time Critical Care Time Critical Care Time: No <MARY Cardenas Last Filed: 09/13/22 16:54> Discharge Plan Discharge Clinical Impression: Abdominal pain <Mireya Villalobos NP - Last Filed: 09/13/22 12:40> Patient Disposition: Home, Self-Care <Mireya Villalobos NP - Last Filed: 09/13/22 12:40> Instructions: Abdominal Pain (ED) <JULIA Fernandez Last Filed: 09/13/22 12:40> Additional Instructions: Your lab workup today was normal. Your urine test was negative for infection and . Your ultrasounds were unremarkable. Recommend rest, drinking plenty of fluids and sticking to a bland diet while you are not feeling well. Take the prescribed medications as needed for pain and nausea/vomiting. If you develop new or worsening symptoms call 911 or come back to the ER for further evaluation. <JULIA Fernandez Last Filed: 09/13/22 12:40> Prescriptions: New naproxen 500 mg tablet 500 mg PO BID PRN (Reason: pain) Qty: 20 0RF ondansetron 4 mg tablet,disintegrating 4 mg PO Q8H PRN (Reason: nausea and vomiting) Qty: 10 0RF No Action cephalexin 500 mg capsule 500 mg PO Q6H 7 Days Qty: 28 0RF phenazopyridine [Pyridium] 200 mg tablet 200 mg PO TID 3 Days Qty: 9 0RF <Mireya Villalobos NP - Last Filed: 09/13/22 12:40> Stand Alone Forms: Work/School Release <Mireya Villalobos NP - Last Filed: 09/13/22 12:40> Interventions: ED Discharge Assessment Last Done: 09/13/22 16:50 <Mireya Villalobos NP - Last Filed: 09/13/22 12:40> Discharge Date/Time: 09/13/22 16:51 <Mireya Villalobos NP - Last Filed: 09/13/22 12:40>
[2022-09-13 13:04] LABS: MANUAL DIFF FLAG NO
[2022-09-13 13:07] LABS: Basophils Percent Auto 0.4 % (0-2); Eosinophils Absolute Auto 0.1 X10*3/uL (0.0-0.4); Eosinophils Percent Auto 1.5 % (0-4); Hematocrit 40.5 % (37.0-47.0); Hemoglobin 13.5 g/dl (12.0-16.0); Imm Gran Abs Auto 0.01 X10*3/uL (0.00-0.03); Imm Gran Pct Auto 0.2 % (0.0-0.4); Lymphocytes Absolute Auto 1.3 X10*3/uL (1.2-4.9); Lymphocytes Percent Auto 24.3 % (20-40); Mean Corpuscular HGB Conc 33.3 g/dl (31.0-35.0); Mean Corpuscular Hemoglobin 30.3 pg (27.0-33.0); Mean Corpuscular Volume 90.8 fL (80.0-98.0); Mean Platelet Volume 9.2 fL (9.4-12.3); Monocytes Absolute Auto 0.3 X10*3/uL (0.1-1.2); Monocytes Percent Auto 4.9 % (2-11); Neutrophils Absolute Auto 3.8 x10*3/uL (2.0-8.3); Neutrophils Percent Auto 68.7 % (45-73); Platelet Count 366 X10*3/uL (160-400); Red Blood Count 4.46 X10*6/uL (4.20-5.50); White Blood Count 5.5 X10*3/uL (4.8-10.8)
[2022-09-13 13:09] LABS: UPreg QC Valid YES; Urine Pregnancy NEGATIVE (NEGATIVE)
[2022-09-13 13:22] LABS: Appearance Urine Clear; Color Urine Orange; Glucose Urine UA 250 mg/dL (Negative); PH 5.5 (5.0-9.0); UMIC TRIGGER UACC YES; Urine Blood Negative (Negative); Urine Ketones Trace mg/dL (Negative); Urine Protein 100 (2+) mg/dL (Neg-Trace)
[2022-09-13 13:23] LABS: WBC Urine 0-5 /HPF (0-5)
[2022-09-13 13:24] LABS: Bacteria Urine Trace (None Seen); COVID-19 Test Negative (Negative); Hyaline Casts Urine 0-2 /LPF (0-2); IDNOW Serial# 9DB6401D; RBC Urine 0-2 /HPF (0-2)
[2022-09-13 13:32] LABS: Alanine Aminotransferase 8 U/L (0-31); Albumin Level 4.4 g/dL (3.5-5.0); Alkaline Phosphatase 80 U/L (39-117); Anion Gap 13 (12-20); Aspartate Amino Transferase 14 U/L (5-31); Bilirubin Direct 0.2 mg/dL (0.0-0.5); Bilirubin Total 0.9 mg/dL (0.0-1.0); Blood Urea Nitrogen 9 mg/dL (9-16); Calcium 9.8 mg/dL (8.4-10.2); Carbon Dioxide 24 mmol/L (22-29); Chloride 106 mmol/L (96-108); Creatinine Clr Calc Pharmacy 97.9; Estimated Glomerular Filt Rate > 60; Glucose Random 122 mg/dL (60-115); Potassium 4.1 mmol/L (3.3-5.1); Sodium 139 mmol/L (135-145); Total Protein 6.9 g/dL (6.5-8.0)
[2022-09-13] MEDS: 0.9 % Sodium Chloride 1,000 ML 999 ML IVCONT (13:54)
--- NOTE | 2022-09-13 13:56 | PC.NURSE ---
20G iv inserted into left AC- 1L NS infusing per order. pt resting with father at bedside- WCTM
[2022-09-13] MEDS: ondansetron HCL 4 MG/2 ML VIAL IVPUSH (14:10)
[2022-09-13] MEDS: Ketorolac Tromethamine 30 MG/ML VIAL IVPUSH (14:10)
[2022-09-13 14:50] VITALS: BP 103/58; PULSE 77; RESP 16; TEMP 36.9; O2SAT 98
== END 2022-09-13 16:51 | disposition home or self-care (01) ==
PROVIDERS: Nurse Practitioner Family; Emergency Provider Emergency Medicine
DX: M54.50 Low back pain, unspecified (principal); R10.31 Right lower quadrant pain; N39.0 Urinary tract infection, site not specified; R11.2 Nausea with vomiting, unspecified; Z20.822 Contact with and (suspected) exposure to COVID-19; Z20.828 Contact with and (suspected) exposure to other viral communicable diseases; Z79.899 Other long term (current) drug therapy
CPT/HCPCS: 36415; 76705; 76775; 80048; 80076; 81001; 81025; 85025; 87635; 96361; 96374; 96375; 99283; 99284; J1885; J2405

== ENCOUNTER 2024-07-27 21:57 | Emergency (ER) | payer OTHER, SELFPAY ==
--- NOTE | ~2024-07-27 | US_ITS ---
CLINICAL HISTORY: right sided pain, tenderness US abdomen limited Comparison: None Findings: The visualized pancreas is normal. The aorta and inferior vena cava are normal caliber. The liver is normal in size and echotexture. Echogenic focus in the right lobe of the liver measuring 1.9 x 1.3 x 1.2 cm, avascular. Finding may reflect hemangioma, lipoma amongst other etiologies. If clinical concern persists consider follow-up MRI. There is no intrahepatic bile duct dilatation. The common duct is 3 mm in diameter. The gallbladder is normal. There is no sonographic Millan sign. The main portal vein is antegrade. The right kidney is 10.4 cm in length. No ascites. IMPRESSION: No evidence for cholecystitis. Additional findings as described. This document has been electronically signed by: Maurizio Ryan MD on 07/28/2024 03:43:36
[2024-07-27 22:03] VITALS: BP 118/82; PULSE 97; RESP 14; TEMP 36.4; O2SAT 97; BMI 23.4
[2024-07-27 22:23] LABS: MANUAL DIFF FLAG NO
--- OUTSIDE RECORDS SUMMARY | 2024-07-27 22:23 | XMS_ITS | Clinical Summary ---
Author Organization [facility] Address [address] [place] [address] Phone Care Team Providers Care Camp Tender Name Role Phone Mireya Buck NP Primary Care Provider [phone] Medications Etonogestrel (NEXPLANON SC) Inject under the skin. Active Active Problems Problem Noted Date Diagnosed Date Depressive disorder 04/11/2017 Overview (01/10/2019): Depression (311) Onset: 04/11/2017 Added by: Ruby Hutchins Assessment & Plan (01/10/2019 6:49 AM EDT): Stable at this time. Has been off Prozac for 1 year and doing well. Sees therapist regularly. Immunizations Immunization Administration Dates Next Due DTaP 5 07/10/2006, 3,2001,09/12,2001 HPV, Quadrivalent 02/24/2014,05/06/2013 Hep A, ped/adol 04/11/2017 Hep B, ped/adol 07/28/2002,2001,2001 Hib (PRP-T) 10/27/2002, 2,2001,07/31 IPV 07/10/2006, 3,2001,07/31 Influenza, injectable, quadr ivalent, preservative free 04/11/2017,04/09/2016,04/06/2015,02/24 Influenza, injectable, trivalent 03/06/2010,08/2009 Influenza, injectable, triva lent, preservative free 03/07/2013,03/21/2011 MMR 04/28/2002 MMRV 07/10/2006 Meningococcal Conj (Menactra) MCV4P 01/09/2019,1 07/07/2012 Pneumococcal Conjugate 13-Valent 003,02/17/2002,2001,07/31 Tdap 05/06/2013 Varicella 04/28/2002 Family History Relation Name Status Comments Father Orlando Alive Mother Ashok Alive Social History Tobacco Use Types Packs/Day Years Used Date Smoking Tobacco: Never Smokeless Tobacco: Never Alcohol Use Standard Drinks/Week Comments Never 0 (1 standard drink = 0.6 oz pur e alcohol) Hunger/Food Answer Date Recorded In the last 12 months, did y ou or your family ever eat less than you felt you should because there wasn't enough money for food? No 01/09/2019 Stable Housing Answer Date Recorded Are you worried that in the next 2 months you may not have stable housing? No 01/09/2019 Transportation Concerns Answer Date Rec orded In the last 12 months, have you or your family ever had to go without healthcare because you didn't have a way to get there? No 01/09/2019 Hazards in Home Answer Date Recorded Think about the place you li ve. Do you have problems with any of the following? Pests (mice or roaches), mold, no/not working smoke detectors, water leaks, no window guards. No 2018 Financing Utilities Answer Date Recorde d In the last 12 months, has t he electric, gas, oil, or water company threatened to shut off your services in your home? No 01/09/2019 Safety at Home Answer Date Recorded Are you or your family worried about feeling saf e in your home? No 01/09/2019 Outside Support Answer Date Recorded Do you feel that you need mo re support from other people or programs to help you care for yourself or your family? No 01/09/2019 Understanding Health Concerns Answer Da te Recorded Do you need help understandi ng your or your child's healthcare needs (diagnosis, medications, plan, etc.)? No 01/09/2019 Financing Health Concerns Answer Date R ecorded In the last 12 months, was t here a time when your child needed to see a doctor or get medications or supplies but could not because of cost? No 01/09/2019 Missing School or Work Answer Date Noel rded Did you or your child miss s chool or work because of a health problem that could have been avoided? No 01/09/2019 Comments Unknown Sex and Gender Information Value Date Recorded Sex Assigned at Not on file Legal Sex Female 6:38 PM EDT Gender Identity Not on file Sexual Orientation Not on file Last Filed Vital Signs Vital Sign Reading Time Taken Comments Blood Pressure 116/78 12/29/2020 5:23 PM EDT Pulse 88 01/09/2019 11:35 AM EDT Temperature 36.9 ??C (98.4 ??F) 06/13/2021 3:15 PM ES T Respiratory Rate - - Oxygen Saturation 99% 05/31/2016 4:16 PM EST Inhaled Oxygen Concentration - - Weight 62.6 kg (138 lb) 06/13/2021 3:15 PM EST Height 157.5 cm (5' 2 ) 12/29/2020 5:23 PM EDT Body Mass Index 25.24 12/29/2020 5:23 PM EDT Plan of Treatment Health Maintenance Due Date Last Done Comments Men B Vaccine (1 of 2 - Standard) 2017 Hepatitis A Vaccines (2 of 2 - 2-dose series) 10/09/2017 04/11/2017 DTaP,Tdap,and Td Vaccines (7 - Td or Tdap) 05/06/2023 05/06/2013, 07/10/2006, 10/27/2002, Additional history exists Influenza Vaccines (#1) 2024 04/11/20 17, 04/09/2016, 04/06/2015, Additional history exists COVID-19 Vaccine (2023-2 5 season) 2024 04/23/2021, 09/26/2020, 08/28/2020 Hepatitis B Vaccines Completed 07/28/2002, 2001, 2001 HIB Vaccines Completed 10/27/2002, 11/01, 2001, Additional history exists Pneumococcal Vaccine Completed 05/07/2003, 02/17/2002, 2001, Additional history exists IPV Vaccines Completed 07/10/2006, 10/02, 2001, Additional history exists MMR Vaccines Completed 07/10/2006, 04/28/2002 Varicella Vaccines Completed 07/10/2006, 04/28/2002 HPV Vaccines Completed 02/24/2014, 05/06/2013 Meningococcal Vaccine Completed 01/09/2019, 013 Procedures * Due to [facility] law, this organization might not be sharing sensitive test results. Procedure Name Priority Date/Time Associated Diagnosis Comments CHLAMYDIA GC AMP PROBE Routine 05/16/2020 2:00 PM EST Exposure to sexually transmitted disease (STD) from Last 3 Months or Most Recently Relevant to Health Maintenance Results * Due to [place] [employer] law, this organization might not be sharing sensitive test results. * CHLAMYDIA GC AMP PROBE (05/16/2020 2:00 PM EST) Chlamydia Trachomatis, Amplified NEGATIVE (NEG) [facility] Comment: No Chlamydia Trachomatis RNA detected in this patient's sample ? (REFERENCE RANGE/NORMAL VALUE: NOT DETECTED) ? Note: This test uses clip riveter- mediated amplification method to detect rRNA from C. Trachomatis N.GONORRHOEAE AMP PROBE NEGATIVE (NEG) [facility] Comment: No Neisseria Gonorrhoeae RNA detected in this patient's sample ? (REFERENCE RANGE/NORMAL VALUE: NOT DETECTED) ? NOTE: This test uses clip riveter-mediated amplification method to detect rRNA from N.Gonorrhoeae. A negative result does not preclude infection. In the case of a negative urine result, testing of an endocervical(female) or urethral (male) specimen is recommended if there is high clinical suspicion of infection. Due to very high sensitivity of Nucleic Acid Amplification Test, false positive results may occur. Therefore, specimen handling is extremely important. In patients in whom the disease is unlikely, additional sample for testing should be considered after an initial positive result. The performance characteristics of this test have not been evaluated in children. The Aptima Combo2 assay is not intended for the evaluation of suspected sexual abuse or for other medico-legal indications. The ordering provider should assess if the patient had consensual sex without risk of sexual abuse. Consult the [facility] if needed. Contact phone number . Therapeutic failure or success cannot be determined with the Aptima Combo2 assay since nucleic acid may persist following appropriate antimicrobial therapy. The Centers for Disease Control and Prevention (CDC) recommends confirmatory retesting using culture or a different nucleic acid amplification test when positive results occur, if indicated. CHLAM/GC AMP PROBE SPEC TYPE CERVIX [facility] Comment: Testing performed or reported by [facility], a Service of [facility], [address] [place] [address] Juan Leger MD, Cloth Worker Swab 05/16/2020 2:00 PM EST 05/18/2020 3:20 PM EST John Porras MD LAB MICROBIOLOGY - GENERAL O RDERABLES Final Result [facility] from Last 3 Months or Most Recently Relevant to Health Maintenance Insurance [facility] Care Teams Camp Tender Relationship Specialty Start Date End Date Mireya Buck NP [address] [place] [address] Dr [place] [id number] PCP - General Pediatrics 09/19/20
--- OUTSIDE RECORDS SUMMARY | 2024-07-27 22:23 | XMS_ITS | Encounter Summary ---
Author Organization [facility] Address [address] [place] [address] Phone Care Team Providers Care Housing Counselor Name Role Phone Mireya Buck NP Primary Care Provider [phone] Encounter Details Date Type Department Care Team (Late st Contact Info) Description 03/20/2011 Conversion Encounter [facility] [address] [facility] [place] [address] Social History Tobacco Use Types Packs/Day Years Used Date Smoking Tobacco: Never Assessed Comments Unknown Sex and Gender Information Value Date Recorded Sex Assigned at Not on file Legal Sex Female 6:38 PM EDT Gender Identity Not on file Sexual Orientation Not on file documented as of this encounter Plan of Treatment Not on file documented as of this encounter Visit Diagnoses Not on filedocumented in this encounter Care Teams Housing Counselor Relationship Specialty Start Date End Date Mireya Buck NP [address] [facility] [place] [address] PCP - General Pediatrics 09/19/20 documented as of this encounter
--- OUTSIDE RECORDS SUMMARY | 2024-07-27 22:23 | XMS_ITS ---
Author Organization [facility] Address [address] [place] [address] Care Team Providers Care Speech Therapist Name Role Phone KIARA MILLER Unavailable [phone] Encounters Encounter Location Date Provider Diagnosis [address] [place] [phone] 06/04/2024 KIARA MILLER PLAN OF TREATMENT No Information Progress Notes * Aminata BARROB:2000 (24 yo F)Acc No.[id number]:06/04/2024 Patient:??Yanet BARR Provider:??KIARA MILLER PA-C :2000?Age:24 Y?Sex:Fe male Date:06/04/2024 Address:[address] [place], [place] [id number] Subjective: * Chief Complaints: * ? * Medical History:?? Objective: Assessment: Plan: * Treatment: * Images: Billing Information: * Visit Code:?? * Procedure Codes:?? * Sign off status: Pending * Provider:??KIARA MILLER PA-C Date:?? 06/04/2024
--- OUTSIDE RECORDS SUMMARY | 2024-07-27 22:23 | XMS_ITS | Encounter Summary ---
Author Organization [facility] Address [address] [place] [address] Phone Care Team Providers Care Mc Kay Stitcher Name Role Phone Mireya Buck NP Primary Care Provider [phone] Reason for Visit * Reason Comments Med Refill Encounter Details Date Type Department Care Team (Late st Contact Info) Description 11/22/2017 Refill [facility] [address] [facility] [address] Mamta Guzman MD [address] [place] [address] Other depression (Primary Dx) Social History Tobacco Use Types Packs/Day Years Used Date Smoking Tobacco: Never Assessed Comments Unknown Sex and Gender Information Value Date Recorded Sex Assigned at Not on file Legal Sex Female 6:38 PM EDT Gender Identity Not on file Sexual Orientation Not on file documented as of this encounter Miscellaneous Notes * Telephone Encounter - Corrie Liu MA - 11/25/2017 8:51 AM EDT Last pe with [facility]P 04/11/17 L/M to book a med ck. MQ documented in this encounter Plan of Treatment Not on file documented as of this encounter Visit Diagnoses Diagnosis Other depression- Primary documented in this encounter Care Teams Mc Kay Stitcher Relationship Specialty Start Date End Date Mireya Buck NP [address] [facility] [place] [address] PCP - General Pediatrics 09/19/20 documented as of this encounter
--- OUTSIDE RECORDS SUMMARY | 2024-07-27 22:23 | XMS_ITS ---
Author Organization [facility] Address [address] [place] [address] Care Team Providers Care Hogshead Cooper Name Role Phone KIARA MILLER Unavailable [phone] REASON FOR VISIT close note Encounters Encounter Location Date Provider Diagnosis [address] [place] [phone] 05/28/2024 KIARA MILLER PLAN OF TREATMENT No Information Progress Notes * Aminata BARROB:2000 (24 yo F)Acc No.[id number]:05/28/2024 Patient:??Yanet BARR :2000?Age:24 Y?Sex:Fe male Address:[address] [place] [address] * true * Date:??
--- OUTSIDE RECORDS SUMMARY | 2024-07-27 22:23 | XMS_ITS ---
Author Organization [facility] Address [address] [place] [address] Care Team Providers Care Special Education Director Name Role Phone KIARA MILLER [facility] [phone] Encounters Encounter Location Date Provider Diagnosis [facility] [address] [place] [address] 05/07/2024 KIARA MILLER PLAN OF TREATMENT No Information Progress Notes * Aminata BARROB:2000 (24 yo F)Acc No.[id number]:05/07/2024 Patient:??Yanet BARR :2000?Age:24 Y?Sex:Fe male Address:[address] [place] [address] [place] [address] * true * Date:??
[2024-07-27 22:24] LABS: Basophils Percent Auto 0.6 % (0-2); Eosinophils Absolute Auto 0.1 X10*3/uL (0.0-0.4); Eosinophils Percent Auto 1.6 % (0-4); Hematocrit 36.2 % (37.0-47.0); Hemoglobin 12.6 g/dl (12.0-16.0); Imm Gran Abs Auto 0.01 X10*3/uL (0.00-0.03); Imm Gran Pct Auto 0.2 % (0.0-0.4); Lymphocytes Absolute Auto 1.5 X10*3/uL (1.2-4.9); Mean Corpuscular HGB Conc 34.8 g/dl (31.0-35.0); Mean Corpuscular Volume 86.2 fL (80.0-98.0); Monocytes Absolute Auto 0.4 X10*3/uL (0.1-1.2); Monocytes Percent Auto 8.7 % (2-11); Neutrophils Percent Auto 58.9 % (45-73); Platelet Count 305 X10*3/uL (160-400); Red Cell Distribution Width 12.5 % (11.0-16.0)
[2024-07-27 22:25] LABS: Appearance Urine Cloudy; Color Urine Dark Yellow; Glucose Urine UA Negative (Negative); Leukocyte Esterase Urine Trace (Negative); Nitrite Urine Negative (Negative); PH 5.5 (5.0-9.0); Specific Gravity - Urine >= 1.030 (1.005-1.025); UMIC TRIGGER UACC YES; Urine Blood Negative (Negative); Urine Ketones 15 mg/dL (Negative); Urine Protein Trace mg/dL (Neg-Trace)
[2024-07-27 22:39] LABS: Alanine Aminotransferase 12 U/L (0-31); Albumin Level 4.7 g/dL (3.5-5.0); Alkaline Phosphatase 50 U/L (39-117); Anion Gap 13 (12-20); Aspartate Amino Transferase 17 U/L (5-31); Bilirubin Total 0.6 mg/dL (0.0-1.0); Blood Urea Nitrogen 8 mg/dL (9-16); Carbon Dioxide 26 mmol/L (22-29); Chloride 108 mmol/L (96-108); Estimated Glomerular Filt Rate > 60; Glucose Random 93 mg/dL (60-115); Lipase 12 U/L (8-78); Potassium 3.2 mmol/L (3.3-5.1); Sodium 144 mmol/L (135-145); Total Protein 7.4 g/dL (6.5-8.0)
[2024-07-27 22:41] LABS: Bacteria Urine 4+ (None Seen); Calcium Oxalate Crystals Urine Present; Hyaline Casts Urine 0-2 /LPF (0-2); RBC Urine 0-2 /HPF (0-2); UACC Culture Trigger YES
[2024-07-27 23:56] VITALS: BP 129/87; PULSE 91; RESP 16; TEMP 36.9; O2SAT 100
--- NOTE | 2024-07-28 01:34 | ED.GENADULT ---
HPI - General Adult General Chief complaint: Abdominal Pain Stated complaint: right side abd pain radiates to back Time Seen by Provider: 07/28/24 01:34 History of Present Illness ED Provider: Rosalva ALMANZAR narrative: The patient is a 24-year-old female who says that she has had pain in her abdomen for approximately 4 days. The pain has been fairly constant. She feels it primarily in her epigastrium and in her right upper quadrant and right flank. She has had nausea but no vomiting. She has had no fever. No cough or shortness of breath. Eating has exacerbated the pain. She has not eaten much over the last 4 days. No urinary symptoms. The patient says that she once had an episode of pyelonephritis. She says this does not feel like the same kind of pain she had at that time. She has no surgical history. The patient says that she 1st noticed the pain 4 days ago. She felt it in her epigastrium. At first she felt that it was related to stretching and position changes. She denies any injury or exertional activity which could have provoked any kind of muscular pain. Related Data Previous Rx's ?Medication ?Instructions ?Recorded cephalexin 500 mg capsule 500 mg PO Q6H 7 days #28 caps 09/10/22 phenazopyridine 200 mg tablet 200 mg PO TID 3 days #9 tabs 09/10/22 (Pyridium) naproxen 500 mg tablet 500 mg PO BID PRN pain #20 tabs 09/13/22 ondansetron 4 mg disintegrating 4 mg PO Q8H PRN nausea and 09/13/22 tablet vomiting #10 tabs omeprazole 20 mg capsule,delayed 20 mg PO DAILY #30 caps 07/28/24 release sucralfate 1 gram tablet 1 g PO TID PRN Epigastric pain #30 07/28/24 tabs Allergies Allergy/AdvReac Type Severity Reaction Status Date / Time Sulfa (Sulfonamide Allergy Vomiting Verified 07/27/24 22:05 Antibiotics) SEASONAL ALLERGIES Allergy Mild HEADACHE Uncoded 07/27/24 22:05 RUNNY NOSE Review of Systems Review of Systems: Yes all other systems are reviewed and are negative [facility] Social History Social History Alcohol intake: current Alcohol intake frequency: holidays/special occasions only Patient Tobacco Use Status: Never used Tobacco Physical Exam ED Vital Signs: Vital Signs - 24 hr 07/27/24 22:03 07/27/24 23:56 07/28/24 04:15 Temperature 97.5 F 98.5 F 98.3 F Pulse Rate 97 91 91 Respiratory Rate 14 16 20 Blood Pressure 118/82 129/87 108/69 Pulse Oximetry 97 100 97 Oxygen Delivery Method Room Air Room Air Room Air 07/28/24 05:02 07/28/24 05:06 Temperature 98.3 F 98.3 F Pulse Rate 88 88 Respiratory Rate 16 16 Blood Pressure 133/79 133/79 Pulse Oximetry 99 99 Oxygen Delivery Method Room Air Room Air BMI result Body Mass Index 23.4 Const Other: The patient is a very slim 24-year-old female who was awake and alert and seems uncomfortable. HENMT Other: Face is symmetrical. Mucous membranes moist. Eyes General: appearance normal, both eyes and all related structures Neck Neck: Yes full ROM Resp Effort & Inspection: normal respiratory effort Auscultation: clear to auscultation bilaterally Cardio Rate: regular rate Rhythm: regular rhythm Heart sounds: S1 normal heart sound present and S2 normal heart sound present GI Other: The patient is abdomen is flat and seems soft but she was quite tender in most of the abdomen, primarily in the right upper abdomen in the epigastrium. When I palpated the right lower quadrant she said that she felt this exacerbated her pain in the epigastric region. General: Yes no CVA tenderness Back/Spine/Pelvis Back: no CVA tenderness Skin General skin exam: no rashes or lesions noted Neuro Other: The patient is awake and alert with a normal mental status. She moves all extremities normally and seems grossly neurologically intact. Extrem Other: No peripheral edema Medications Administered Discontinued Medications Generic Name Dose Route Start Last Admin Trade Name Freq PRN Reason Stop Dose Admin Sodium Chloride 1,000 mls @ 999 mls/hr 07/28/24 02:15 07/28/24 03:40 Ns IV 07/28/24 03:15 Infused .Q1H1M BEATRIZ Infusion Acetaminophen 1,000 mg in 100 mls @ 400 mls/hr 07/28/24 03:33 07/28/24 04:13 Ofirmev IV 07/28/24 03:47 Infused ONCE ONE Infusion Ketorolac Tromethamine 10 mg 07/28/24 02:06 07/28/24 02:19 Ketorolac Tromethamine 15 Mg/Ml Vial IVPUSH 07/28/24 02:07 10 mg ONCE ONE Administration Lorazepam 0.5 mg 07/28/24 02:22 07/28/24 02:26 Lorazepam 2 Mg/Ml Vial IVPUSH 07/28/24 02:23 0.5 mg ONCE ONE Administration Ondansetron HCl 4 mg 07/28/24 02:14 07/28/24 02:20 Ondansetron Hcl 4 Mg/2 Ml Vial IVPUSH 07/28/24 02:15 4 mg ONCE ONE Administration Sucralfate 1 gm 07/28/24 04:01 07/28/24 04:12 Sucralfate Oral Suspension 1 Gm/10 Ml Oral.Susp PO 07/28/24 04:02 1 gm ONCE ONE Administration Medical Decision Making Medical Decision Making [facility] Narrative: The patient is a 24-year-old female who presents with abdominal pain that she says has been bothering her for about 4 days. She indicates that she feels the pain primarily in her epigastrium but also indicated the right upper quadrant and the right flank. She has no urinary symptoms. Her laboratory testing shows a white count of 5.0 with a normal differential. She has an undetectable CRP. Urinalysis shows no blood. Urinalysis shows negative nitrites, trace leukocyte esterase, 11-20 white cells but also 11-20 epithelial cells. She has no urinary symptoms. An ultrasound of the right upper quadrant shows no biliary pathology or right-sided hydronephrosis. The patient denies any vaginal discharge. Her last menstrual period was about 2 weeks ago. She has a new sexual partner whom she has been seeing for about a month. No dyspareunia. No vaginal discharge. She is not currently using any control. Her test is negative. Given her very benign laboratory testing and her negative gallbladder ultrasound and given that her pain is primarily in the region of the epigastrium I do not have a very high suspicion for appendicitis. After 4 days of abdominal pain who would be very unusual for appendicitis to present with a normal CBC and differential an at an undetectable CRP. Given the absence of any lower abdominal pain or pelvic pain I think an ovarian etiology of her pain is unlikely. Ultimately I the spoke to the patient possibly doing a CT scan. I explained I thought it was unlikely that a CT scan with yielded diagnosis. I explained that might impression is that this is much more likely to be a case of gastritis. The patient will therefore be discharged with omeprazole and sucralfate. She should return if worse. Lab Data 07/27/24 22:17 07/27/24 22:17 Labs: Lab Results 07/27/24 07/28/24 Range/Units 22:17 22:17 WBC 5.0 (4.8-10.8) X10*3/uL RBC 4.20 (4.20-5.50) X10*6/uL Hgb 12.6 (12.0-16.0) g/dl Hct 36.2 L (37.0-47.0) % MCV 86.2 (80.0-98.0) fL MCH 30.0 (27.0-33.0) pg MCHC 34.8 (31.0-35.0) g/dl RDW 12.5 (11.0-16.0) % Plt Count 305 (160-400) X10*3/uL MPV 9.0 L (9.4-12.3) fL Immature Gran % (Auto) 0.2 (0.0-0.4) % Neut % (Auto) 58.9 (45-73) % Lymph % (Auto) 30.0 (20-40) % [place] % (Auto) 8.7 (2-11) % Eos % (Auto) 1.6 (0-4) % Baso % (Auto) 0.6 (0-2) % Lymph # (Auto) 1.5 (1.2-4.9) X10*3/uL [place] # (Auto) 0.4 (0.1-1.2) X10*3/uL Eos # (Auto) 0.1 (0.0-0.4) X10*3/uL Baso # (Auto) 0.0 (0.0-0.2) X10*3/uL Abs Immat Gran (auto) 0.01 (0.00-0.03) X10*3/uL Absolute Neuts (auto) 3.0 (2.0-8.3) x10*3/uL Absolute Nucleated RBC 0.000 (0.0-0.012) X10*3/uL Nucleated RBC % (auto) 0.0 (0.0-0.2) /100WBC Sodium 144 (135-145) mmol/L Potassium 3.2 L (3.3-5.1) mmol/L Chloride 108 (96-108) mmol/L Carbon Dioxide 26 (22-29) mmol/L Anion Gap 13 (12-20) BUN 8 L (9-16) mg/dL Creatinine 0.71 (0.5-1.4) mg/dL Estim Creat Clear Calc 93.0 Estimated GFR > 60 Random Glucose 93 (60-115) mg/dL Calcium 10.0 (8.4-10.2) mg/dL Total Bilirubin 0.6 (0.0-1.0) mg/dL AST 17 (5-31) U/L ALT 12 (0-31) U/L Alkaline Phosphatase 50 (39-117) U/L C-Reactive Protein < 0.04 (< or = 0.50) mg/dL Total Protein 7.4 (6.5-8.0) g/dL Albumin 4.7 (3.5-5.0) g/dL Lipase 12 (8-78) U/L Urine Color Dark Yellow Urine Appearance Cloudy Urine pH 5.5 (5.0-9.0) Ur Specific [place] >= 1.030 H (1.005-1.025) Urine Protein Trace (Neg-Trace) mg/dL Urine Glucose (UA) Negative (Negative) mg/dL Urine Ketones 15 (Negative) mg/dL Urine Blood Negative (Negative) Urine Nitrite Negative (Negative) Ur Leukocyte Esterase Trace H (Negative) Urine RBC 0-2 (0-2) /HPF Urine WBC 11-20 H (0-5) /HPF Ur Squamous Epith Cells 11-20 (0-2) /HPF Calcium Oxalate Crystal Present Urine Bacteria 4+ (None Seen) Hyaline Casts 0-2 (0-2) /LPF Urine Test NEGATIVE (NEGATIVE) Discharge Plan Discharge Clinical Impression: Epigastric abdominal pain Patient Disposition: Home, Self-Care Additional Instructions: Your testing in the emergency room seems reassuring from the point of view of an acutely dangerous process. It is possible your pain might be caused by a condition we call ?gastritis. ? Gastritis is an irritation of the lining of the stomach related to stomach acid production. Gastritis is a common cause of pain in the upper midabdomen just below the sternum. Your blood testing argues against the likelihood of appendicitis. Your ultrasound does not show any problems with the or gallbladder or your right kidney. I have sent a prescription for medication called omeprazole. Omeprazole helps reduce stomach acid. Please take this medication once a day. I have also sent a prescription for medication called sucralfate which you may use on an as needed basis. You may take this up to 3 times per day as needed for pain in your mid upper abdomen. This medication helps soothe the pain of gastritis. Please continue your efforts to get a primary care doctor. If you feel significantly worse at any point please return to the emergency room for additional evaluation. Prescriptions: New omeprazole 20 mg capsule,delayed release(DR/EC) 20 mg PO DAILY Qty: 30 0RF sucralfate 1 gram tablet 1 g PO TID PRN (Reason: Epigastric pain) Qty: 30 0RF No Action cephalexin 500 mg capsule 500 mg PO Q6H 7 Days Qty: 28 0RF naproxen 500 mg tablet 500 mg PO BID PRN (Reason: pain) Qty: 20 0RF ondansetron 4 mg tablet,disintegrating 4 mg PO Q8H PRN (Reason: nausea and vomiting) Qty: 10 0RF phenazopyridine [Pyridium] 200 mg tablet 200 mg PO TID 3 Days Qty: 9 0RF Referrals: [facility] [place] [facility] Kelly [Provider Group] [facility] [place] [facility]Alex [Provider Group] [facility] [place] [facility], Leonel Sandoval [Provider Group] Stand Alone Forms: Work/School Release Interventions: ED Discharge Assessment Last Done: 07/28/24 05:06 Discharge Date/Time: 07/28/24 05:10 Print Language: Chadian
[2024-07-28 01:57] LABS: UPreg QC Valid YES; Urine Pregnancy NEGATIVE (NEGATIVE)
[2024-07-28] MEDS: Ketorolac Tromethamine 15 MG/ML VIAL 10 MG IVPUSH (02:19)
[2024-07-28] MEDS: ondansetron HCL 4 MG/2 ML VIAL IVPUSH (02:20)
[2024-07-28 02:21] LABS: C Reactive Protein < 0.04 mg/dL (< or = 0.50)
[2024-07-28] MEDS: LORazepam 2 MG/ML VIAL 0.5 MG IVPUSH (02:26)
[2024-07-28] MEDS: 0.9 % Sodium Chloride 1,000 ML 999 ML IV (02:28)
--- NOTE | 2024-07-28 02:56 | PC.NURSE ---
patient to ultrasound
[2024-07-28] MEDS: Acetaminophen 1,000 MG/100 ML PIGGYBACK 400 MG IV (03:38)
[2024-07-28] MEDS: Sucralfate Oral Suspension 1 GM/10 ML ORAL.SUSP PO (04:12)
[2024-07-28 04:15] VITALS: BP 108/69; PULSE 91; RESP 20; TEMP 36.8; O2SAT 97
[2024-07-28 05:02] VITALS: BP 133/79; PULSE 88; RESP 16; TEMP 36.8; O2SAT 99
[2024-07-28 05:06] VITALS: BP 133/79; PULSE 88; RESP 16; TEMP 36.8; O2SAT 99
[2024-07-28 11:55] LABS: CT PCR NOT DETECTED (Not Detect.); NG PCR NOT DETECTED (Not Detect.)
== END 2024-07-28 05:10 | disposition home or self-care (01) ==
PROVIDERS: Emergency Provider Emergency Medicine
DX: R10.13 Epigastric pain (principal); R10.819 Abdominal tenderness, unspecified site; M54.50 Low back pain, unspecified; R10.11 Right upper quadrant pain; R11.0 Nausea; Z79.899 Other long term (current) drug therapy; Z20.2 Contact with and (suspected) exposure to infections with a predominantly sexual mode of transmission
CPT/HCPCS: 36415; 76705; 80053; 81001; 81025; 83690; 85025; 86140; 87086; 87491; 87591; 96361; 96365; 96375; 99284; 99285; J0131; J1885; J2060; J2405

== ENCOUNTER → 2024-07-28 02:13 | Outpatient (BNV) | payer OTHER, SELFPAY | PROVIDERS: Emergency Provider Emergency Medicine; Visit Provider Radiology Diagnostic Radiology | DX: R10.11 Right upper quadrant pain (principal) | CPT/HCPCS: 76705 ==